=== PATIENT | female | born 1955 | race Caucasian/White ===

== ENCOUNTER → 2017-05-24 | Outpatient (CLI) | payer OTHER ==
[~2017-05-24] MED LIST: CAPT1TAB38 PO; HYDR25TA5 PO; INSDGIPEN SC; METO50TA7 PO; NVLGIPEN SC; PENI-82 PO
[2017-05-24 13:42] LABS: CHOLESTEROL/HDL RATIO 1.8
== END | disposition home or self-care (01) ==
LOC: C.LAB 09:55
PROVIDERS: ATTEND Family Medicine
DX: Z00.00 Encounter for general adult medical examination without abnormal findings (principal)